=== PATIENT | female | born 1965 | race Caucasian/White ===

== ENCOUNTER → 2023-07-05 08:33 | Outpatient (REF) | payer BC, SELFPAY | LOC: WDC 08:33 | PROVIDERS: ATTENDING PHYSICIAN Obstetrics & Gynecology Gynecology; FAMILY PHYSICIAN Family Medicine | DX: Z12.31 Encounter for screening mammogram for malignant neoplasm of breast (principal) | CPT/HCPCS: 77063; 77067 ==

== ENCOUNTER → 2023-07-30 07:25 | Outpatient (REF) | payer BC, SELFPAY ==
[2023-07-30 09:24] LABS: Glycohemoglobin (HgbA1c) 5.6 % (4.0-5.6)
[2023-07-30 10:30] LABS: ALT (SGPT) 19 U/L (0-35); AST (SGOT) 30 U/L (14-36); Albumin 4.9 g/dl (3.5-5.0); Alkaline Phosphatase 78 U/L (38-126); Blood Urea Nitrogen 18 mg/dl (7-17); Calcium 10.4 mg/dl (8.4-10.2); Carbon Dioxide 24 mmol/L (22-30); Chloride 105 mmol/L (98-107); Glucose 94 mg/dl (70-99); HDL Cholesterol 74 mg/dl; Potassium 4.1 mmol/L (3.5-5.1); Sodium 139 mmol/L (135-145); Total Bilirubin 0.8 mg/dl (0.2-1.3); Triglyceride 116 mg/dl (10-149); Very Low Density Lipoprotein 23 mg/dl (0-30); eGFR > 60.00
[2023-07-30 10:34] LABS: TSH 1.43 uIU/ml (0.47-4.68)
[2023-07-30 10:50] LABS: LDL Cholesterol, Calculated 169 mg/dl; Total Cholesterol 266 mg/dl (50-199)
== END ==
LOC: REG 07:25
PROVIDERS: ATTENDING PHYSICIAN Family Medicine
DX: E78.00 Pure hypercholesterolemia, unspecified (principal); R73.01 Impaired fasting glucose; Z00.00 Encounter for general adult medical examination without abnormal findings
CPT/HCPCS: 36415; 80053; 80061; 83036; 84443

== ENCOUNTER → 2023-09-10 08:36 | Outpatient (REF) | payer BC, SELFPAY ==
[2023-09-10 08:58] LABS: % Basophils 0.3 % (0-2); % Eosinophils 1.4 % (0-6); % Immature Granulocytes 0.1 % (0-0.5); % Monocytes 6.9 % (1.7-9.3); % Neutrophils 65.3 % (42.2-75.2); Absolute Eosinophils 0.1 10^3/uL (0-0.7); Absolute Lymphocytes 1.9 10^3/uL (1.2-3.4); Absolute Monocytes 0.5 10^3/uL (0.1-0.6); Absolute Neutrophils 4.7 10^3/uL (1.4-6.5); Hematocrit 40.8 % (37.0-47.0); Hemoglobin 13.4 g/dL (12.0-16.0); Mean Corp Hgb Conc. 32.8 g/dL (33.0-37.0); Mean Corpuscular Hgb 29.1 pg (27.0-31.0); Mean Corpuscular Volume 88.7 fL (81.0-99.0); Mean Platelet Volume 9.6 fL (7.4-10.4); Platelet Count 186 10^3/uL (130-400); White Blood Cell Count 7.1 10^3/uL (4.8-10.8)
[2023-09-10 10:27] LABS: LDH 190 U/L (120-246)
[2023-09-10 23:33] LABS: IgG 1244 mg/dl (700-1600)
--- NOTE | 2023-09-11 10:00 | SURV.PHONR ---
Survivorship Phone Log
- Communication
Date Spoke With Comments
09/10/2023 patient Patient seen in [facility] today for labs. Seen with outpatient infusion nurse Janna Goins. Patient reports irritation with scar that developed over Mediport site after removal in March. We discussed laser treatment could be helpful
for this through rehab. Patient was motivated to try this. I advised the patient I would send a prescription to rehab which I did and gave her than phone number to schedule.
We also discussed survivorship and I encouraged her to make an appointment. Over the phone we did discuss that she is interested in increasing exercise. We talked about taking daily walks, considering light weights, yoga, and even meditation. I
encouraged her to do these with her for both physical activity increase as well as emotional health. We also discussed resources available including [facility] . Contact information was provided for this. I also mailed out our
resource list to the patient. She was provided my contact information and advised to call for any additional questions or concerns. Overall she is under a lot of stress right now with her being treated at [facility] for leukemia. She will call
to make an appointment either by phone or in person to discuss survivorship further. She thanked me for my time and for the call and will call back as needed. A total of 35 minutes was spent on the phone and direct conversation with the patient.
== END ==
LOC: OIDL 08:36
PROVIDERS: ATTENDING PHYSICIAN Internal Medicine Hematology & Oncology; FAMILY PHYSICIAN Family Medicine
DX: C83.73 Burkitt lymphoma, intra-abdominal lymph nodes (principal); T82.868A Thrombosis due to vascular prosthetic devices, implants and grafts, initial encounter; Y83.1 Surgical operation with implant of artificial internal device as the cause of abnormal reaction of the patient, or of later complication, without mention of misadventure at the time of the procedure
CPT/HCPCS: 36415; 82784; 83615; 85025

== ENCOUNTER → 2023-10-02 18:34 | Outpatient (REF) | payer BC, SELFPAY ==
[2023-10-02 19:28] LABS: Urine Albumin Negative (Neg - Trace); Urine Bilirubin Negative (Negative); Urine Character Clear (Clear); Urine Color Yellow; Urine Glucose Negative (Negative); Urine Ketone Negative (Negative); Urine Leukocyte Negative (Negative); Urine Nitrite Negative (Negative); Urine Occult Blood Negative (Negative); Urine Specific Gravity 1.015 (<1.030); Urine Urobilinogen Negative (Neg - 1+); Urine pH 6.5 (5.0-9.0)
== END ==
LOC: CPAP 18:34
PROVIDERS: ATTENDING PHYSICIAN Nurse Practitioner Adult Health
DX: R10.2 Pelvic and perineal pain (principal); N76.0 Acute vaginitis
CPT/HCPCS: 81003; 87086; 87102

== ENCOUNTER 2023-10-06 07:55 | Outpatient (RCR) | payer BC, SELFPAY | END 2023-10-06 23:59 | disposition home or self-care (01) | LOC: RPT 07:55 | PROVIDERS: ATTENDING PHYSICIAN Internal Medicine Hematology & Oncology; FAMILY PHYSICIAN Family Medicine | DX: C83.33 Diffuse large B-cell lymphoma, intra-abdominal lymph nodes (principal) | CPT/HCPCS: 97110; 97140; 97161; 97535 ==

== ENCOUNTER 2023-10-13 11:15 | Emergency (ER) | payer BC, SELFPAY ==
[2023-10-13 11:25] VITALS: BP 156/93
--- NOTE | 2023-10-13 11:53 | ED.GENMED ---
History of Present Illness
General
Chief Complaint: Musculo-Skeletal Complaint
Source: patient
Time Seen by Provider: 10/13/23 11:33
History of Present Illness
History of Present Illness:
57-year-old female with past medical history lymphoma (currently in remission x 3 years), GERD, anemia presenting emergency department for evaluation of lower back/pelvic pain that has been ongoing for about 2 to 3 weeks after an accidental fall
when she got her foot caught in between 2 rocks and turned trying to get her foot out but caused her to fall onto her left side. Patient states initially after the fall she did not feel too bad but went to the chiropractor and since that time has
had worsening lower back/pelvic pain. Patient notes pain worse when sitting. She also notes some mild paresthesia into the buttock area/back of her thighs.
Past History
Past History
ED Past Medical History: Cancer, GERD and Hypercholesterolemia
ED Past Surgical History: Gynecological
Social History
Tobacco: Non-smoker
Alcohol: Occasional
Drug: None
Personal:
Living: with family
Employment: Employed
Family History
Family History: Other (Colon cancer)
Review of Systems
Review of Systems
All Other Systems: ROS reviewed and negative except as documented in HPI and ROS
Phy Exam
Physical Exam
Physical Exam:
GENERAL: Alert , in no apparent distress
EYE: conjunctiva clear
NECK: Supple, no significant adenopathy.
ENT: o/p clr, mmm.
CARDIAC: Regular rate and rhythm
LUNGS: Clear breath sounds bilaterally, no acute respiratory distress, no wheezes/rales/rhonchi
Back: Tenderness along the sacrum extending laterally into the left buttock
NEUROLOGICAL: Alert and oriented
SKIN: Warm and dry, skin intact.
MUSCULOSKELETAL: well perfused.
PSYCH: Normal and appropriate interaction.
Scores
Heart Failure Risk
Heart Failure Risk Score: Not Applicable
Heart Score for Chest Pain Patients
STEMI patient?: Not applicable
Withdrawal Assessment of Alcohol
Withdrawal Assessment Completed?: Not applicable
Course
Orders/Labs/Results
Orders:
Orders
10/13/23 11:47
CT Pelvis W/o Iv Contrast Urgent
Comment:
Reason For Exam: fall, pain, paresthesia
Vital Signs
Initial and Last Documented VS:
Initial Vital Signs
Temp Pulse Resp BP Pulse Ox
98.2 F 79 18 156/93 97
10/13/23 11:25 10/13/23 11:25 10/13/23 11:25 10/13/23 11:25 10/13/23 11:25
Last Documented Vital Signs
Temp Pulse Resp BP Pulse Ox
98.2 F 79 18 156/93 97
10/13/23 11:25 10/13/23 11:25 10/13/23 11:25 10/13/23 11:25 10/13/23 11:25
MDM/Problems Addressed
Differential Diagnosis Includes:
pelvic contusion, sacral fx, coccyx fracture, pelvic fx, lumbar sprain
MDM/Problems Addressed:
57-year-old female presenting emergency department for worsening lower back pain following a fall a couple of weeks ago. Has been attempting ice, NSAIDs and sitting on pillows but this is not given her any relief. Discussed risk versus benefit of
CT and x-ray. Patient prefers CT at this time. Declines any medication for pain.
*Radiology
Radiology exam reviewed: radiology read reviewed
*Pulse Oximetry
Patient hypoxic: no
*Critical Care Note
Total Time (30-74mins, 75-104mins- exclusive of procedures): Not Applicable
Patient Management
Escalation/DeEscalation of care consider admission/obs:
Patient CT scan without evidence for acute fracture. Hernia known and patient has surgery scheduled for this coming November. Stable for d/c home and outpatient follow up with PCP
ED Attending Note
-
Portions of this chart may have been created with voice recognition software.� Occasional wrong word or��sound alike� substitutions may have occurred due to the inherent limitations of voice recognition software.
Discharge Plan
Departure
Patient Disposition: Home (Routine Discharge)
Date of Disposition: 10/13/23
Time of Disposition: 14:03
Patient with high blood pressure during this ER visit?: Yes
Discharge Problem:
Contusion of sacral region
Instructions: Contusion (DC)
Prescriptions:
No Action
omeprazole 20 MG capsule,delayed release(DR/EC)
20 mg PO DAILY
sertraline 50 MG tablet
100 mg PO DAILY
multivitamin with folic acid [Tab-A-Kizzy] 1 TABLET tablet
1 tab PO DAILY
Referrals:
Loni Navarro MD [Family Provider] -
Interventions
Interventions:
*Risk Screen - Suicide Last Done: 10/13/23 11:25
*General Assessment Last Done: 10/13/23 11:25
*Neglect/Abuse Screening Last Done: 10/13/23 11:25
*ED COVID-19 Vaccine History Last Done: 10/13/23 11:25
*Nursing Disposition Last Done: 10/13/23 14:15
ED-Musculoskeletal Assessment Last Done: 10/13/23 11:58
Discharge Date and Time
Discharge Date/Time: 10/13/23 14:16
Print Language: POLISH
== END 2023-10-13 14:16 | disposition home or self-care (01) ==
LOC: EMR 11:15
PROVIDERS: EMERGENCY PHYSICIAN Emergency Medicine; FAMILY PHYSICIAN Family Medicine
DX: S30.0XXA Contusion of lower back and pelvis, initial encounter (principal); W19.XXXA Unspecified fall, initial encounter; K21.9 Gastro-esophageal reflux disease without esophagitis; E78.00 Pure hypercholesterolemia, unspecified; D64.9 Anemia, unspecified; Z80.0 Family history of malignant neoplasm of digestive organs; Z85.72 Personal history of non-Hodgkin lymphomas
CPT/HCPCS: 99284; 72192

== ENCOUNTER 2023-11-19 06:13 | Outpatient (RCR) | payer BC, SELFPAY | END 2023-11-19 23:59 | disposition home or self-care (01) | LOC: RPT 06:13 | PROVIDERS: ATTENDING PHYSICIAN Nurse Practitioner Adult Health; FAMILY PHYSICIAN Family Medicine | DX: R10.2 Pelvic and perineal pain (principal); M62.81 Muscle weakness (generalized); Z73.6 Limitation of activities due to disability; Z98.890 Other specified postprocedural states | CPT/HCPCS: 97110; 97163; 97530 ==

== ENCOUNTER 2023-11-28 11:56 | Outpatient (RCR) | payer BC, SELFPAY | END 2023-11-28 23:59 | disposition home or self-care (01) | LOC: RPT 11:56 | PROVIDERS: ATTENDING PHYSICIAN Nurse Practitioner Adult Health; FAMILY PHYSICIAN Family Medicine | DX: R10.2 Pelvic and perineal pain (principal); N94.818 Other vulvodynia; M62.81 Muscle weakness (generalized) | CPT/HCPCS: 97110; 97530 ==

== ENCOUNTER 2023-12-01 06:26 | Day surgery (SDC) | payer BC, SELFPAY ==
[2023-11-25 09:24] LABS: Hematocrit 36.9 % (37.0-47.0); Hemoglobin 12.5 g/dL (12.0-16.0); Mean Corp Hgb Conc. 33.9 g/dL (33.0-37.0); Mean Corpuscular Hgb 29.4 pg (27.0-31.0); Mean Corpuscular Volume 86.8 fL (81.0-99.0); Mean Platelet Volume 10.7 fL (7.4-10.4); Platelet Count 188 10^3/uL (130-400); Red Blood Cell Count 4.25 10^6/uL (4.20-5.40); Red Cell Dist. Width 13.1 % (11.5-14.5); White Blood Cell Count 7.1 10^3/uL (4.8-10.8)
[2023-11-25 09:47] VITALS: BMI 32.0
[2023-11-25 10:00] LABS: Blood Urea Nitrogen 18 mg/dl (7-17); Calcium 9.7 mg/dl (8.4-10.2); Carbon Dioxide 28 mmol/L (22-30); Chloride 104 mmol/L (98-107); Estimated Creatinine Clearance 78 ml/min; Glucose 88 mg/dl (70-99); Potassium 4.7 mmol/L (3.5-5.1); Sodium 143 mmol/L (135-145); eGFR > 60.00
[2023-12-01] VITALS (12 sets, daily range): BP systolic 127–163; BP diastolic 79–97; BMI 32.0
--- NOTE | 2023-12-01 07:15 | HP.FOC2 ---
Focused History & Physical
Chief Complaint
HPI:
Chief Complaint: Incisional hernia
HPI / Indication for Planned Procedure: Patient is a 57-year-old female who underwent JASMYNE/BSO for removal of pelvic mass via lower midline laparotomy incision and 2020 and previous history of Pfannenstiel surgical incision for right oophorectomy in
the more distant past.
She has taken note of periumbilical swelling to the left side present upon standing, slowly enlarging in size over the years. Uncomfortable and at times painful particularly at the end of the day or after prolonged standing/exercise. No nausea no
vomiting. No symptoms suggestive of incarceration with obstruction or strangulation.
Recent CT imaging identifying a left periumbilical incisional hernia fat-containing measuring approximately 2 cm in diameter and a small adjacent fat-containing umbilical hernia.
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
Relevant Social History: Negative
Relevant Family History: Negative
Relevant Past Surgical History: Positive for (Right oophorectomy, benign breast biopsy, mandibular advancement surgery, ex lap JASMYNE/BSO for B-cell lymphoma mass, port placement)
Review of Systems
Review of Pertinent Systems: All Systems Negative
Medication
See Medication form for detailed medications: Yes
Medication List (including Herbals & OTC):
omeprazole 20 mg capsule,delayed release 20 mg PO DAILY Gastrointestinal issue 10/11/20
multivitamin 1 tab PO DAILY 11/20/23
sertraline 50 mg tablet 50 mg PO DAILY 11/20/23
Medications Reviewed: Yes
Allergies and Reactions
Patient has Allergies: No
Noted Allergies and Reactions:
Allergy/AdvReac Type Severity Reaction Status Date / Time
No Known Allergies Allergy Verified 11/20/23 08:44
Pertinent Physical Exam
All Other Systems: Negative
Head/Neck: Normal
Lungs: Normal
Heart: Normal
Abdomen: Other (Soft, reducible, slightly tender incisional hernia just to the left of the umbilical stalk. Fascial defect approximately 2 cm.)
Extremities: Normal
Neurological: Normal
Diagnosis / Assessment
57-year-old female presenting for scheduled operative correction periumbilical incisional hernia, 2 cm
Plan / Procedure
Robotic assisted laparoscopic repair incisional hernia with mesh
Anesthesia/Sedation to be done by Anesthesia Provider: Yes
[2023-12-01] MEDS: TYLENOL 1000 MG PO (08:49)
[2023-12-01] MEDS: NORMOSOL-R/PLASMALYTE-A 1000 IV (08:50)
--- NOTE | 2023-12-01 09:02 | W.SUR.PREOP ---
Pre-Operative Surgical Note
-
I have examined this patient prior to the performance of the scheduled procedure.
The patient's condition is unchanged from the time of the current History and
Physical and the patient is able to undergo the scheduled procedure.
--- NOTE | 2023-12-01 12:06 | W.IMMPOSTOP ---
Addendum entered and electronically signed by Chi Moses MD 12/01/23 16:27:
[id number]
Original Note:
Surgical Immed Post Op Note
-
Primary Surgeon: Josué
Assisting Surgeon: Ana Chun PA-c
Pre-op Diagnosis: Incisional hernia/UH
Post-op Diagnosis: Incisional hernia/UH (3cm total length); SB adhesions
Procedure Performed: RAL IPUM (+) repair incisional and umbilical hernias with mesh (11cm round Ventralight ST)
RAL ANNA MARIE
Anesthesia Type: GETA + 0.25% Marcaine
Specimen / Cultures: none
Estimated Blood Loss: 8mL
Complications: none immediate
Operative Findings: numerous SB adhesions to midline laparotomy incision and LLQ adding 45min to typical operative time. incisional hernia to left of midline at umbilicus ~2cm defect with <1cm immediately adjacent UH; total length 3cm. closure of
fascial defects with 0 PDS Strattafix. VentralightST 11cm round IPUM repair secured with 2-0 PDS Strattafix.
The assistance of Ana Chun PA-C was required due to the complexity of the procedure. During the procedure Ana Chun PA-C assisted with port placement, robotic instrumentation and suture material exchanges, and closure of the surgical incision
sites. I was present for the entirety of the operative procedure.
[2023-12-01] MEDS: TYLENOL 650 MG PO (14:48)
== END 2023-12-01 15:10 | disposition home or self-care (01) ==
LOC: SDS 06:26
PROVIDERS: ATTENDING PHYSICIAN Surgery; FAMILY PHYSICIAN Family Medicine; OTHER PHYSICIAN Internal Medicine; OTHER PHYSICIAN Internal Medicine Hematology & Oncology
DX: K42.9 Umbilical hernia without obstruction or gangrene (principal); K43.0 Incisional hernia with obstruction, without gangrene; K66.0 Peritoneal adhesions (postprocedural) (postinfection)
CPT/HCPCS: 49593; 36415; 80048; 85027; 93005; C1781

== ENCOUNTER → 2024-03-10 08:43 | Outpatient (REF) | payer BC, SELFPAY | LOC: RAD 08:43 | PROVIDERS: ATTENDING PHYSICIAN Internal Medicine Hematology & Oncology; FAMILY PHYSICIAN Family Medicine | DX: C83.33 Diffuse large B-cell lymphoma, intra-abdominal lymph nodes (principal); D64.81 Anemia due to antineoplastic chemotherapy; D50.9 Iron deficiency anemia, unspecified | CPT/HCPCS: 36415; 71260; 74177; 80048; 83615; 85025; Q9967 ==

== ENCOUNTER 2024-05-17 09:54 | Outpatient (RCR) | payer BC, SELFPAY | END 2024-05-17 23:59 | disposition home or self-care (01) | LOC: RPT 09:54 | PROVIDERS: ATTENDING PHYSICIAN Internal Medicine Hematology & Oncology; FAMILY PHYSICIAN Family Medicine | DX: R35.0 Frequency of micturition (principal); M54.50 Low back pain, unspecified; R53.0 Neoplastic (malignant) related fatigue; Z73.6 Limitation of activities due to disability; M62.81 Muscle weakness (generalized); M25.552 Pain in left hip; M25.551 Pain in right hip | CPT/HCPCS: 97110; 97112; 97140; 97163; 97530 ==

== ENCOUNTER 2024-06-16 08:44 | Outpatient (RCR) | payer BC, SELFPAY | END 2024-06-16 23:59 | disposition home or self-care (01) | LOC: RPT 08:44 | PROVIDERS: ATTENDING PHYSICIAN Internal Medicine Hematology & Oncology; FAMILY PHYSICIAN Family Medicine | DX: R35.0 Frequency of micturition (principal); M54.50 Low back pain, unspecified; R53.0 Neoplastic (malignant) related fatigue; Z73.6 Limitation of activities due to disability; M62.81 Muscle weakness (generalized); M25.552 Pain in left hip; M25.551 Pain in right hip; Z85.72 Personal history of non-Hodgkin lymphomas | CPT/HCPCS: 97110; 97112; 97140; 97530 ==

== ENCOUNTER 2024-06-30 10:57 | Outpatient (RCR) | payer BC, SELFPAY | END 2024-06-30 12:48 | disposition home or self-care (01) | LOC: RPT 10:57 | PROVIDERS: ATTENDING PHYSICIAN Internal Medicine Hematology & Oncology; FAMILY PHYSICIAN Family Medicine | DX: R35.0 Frequency of micturition (principal); M54.50 Low back pain, unspecified; R53.0 Neoplastic (malignant) related fatigue; Z73.6 Limitation of activities due to disability; M62.81 Muscle weakness (generalized); M25.552 Pain in left hip; M25.551 Pain in right hip; Z85.72 Personal history of non-Hodgkin lymphomas | CPT/HCPCS: 97110; 97112; 97530 ==

== ENCOUNTER → 2024-07-05 18:35 | Outpatient (REF) | payer BC, SELFPAY | LOC: WDC 18:35 | PROVIDERS: ATTENDING PHYSICIAN Obstetrics & Gynecology Gynecology; FAMILY PHYSICIAN Family Medicine | DX: Z12.31 Encounter for screening mammogram for malignant neoplasm of breast (principal) | CPT/HCPCS: 77063; 77067 ==

== ENCOUNTER → 2024-07-30 07:10 | Outpatient (REF) | payer BC, SELFPAY ==
[2024-07-30 08:35] LABS: ALT (SGPT) 20 U/L (0-35); AST (SGOT) 25 U/L (14-36); Albumin 4.3 g/dl (3.5-5.0); Alkaline Phosphatase 68 U/L (38-126); Blood Urea Nitrogen 13 mg/dl (7-17); Carbon Dioxide 29 mmol/L (22-30); Chloride 106 mmol/L (98-107); Glucose 100 mg/dl (70-99); HDL Cholesterol 60 mg/dl; LDL Cholesterol, Calculated 146 mg/dl; Potassium 4.9 mmol/L (3.5-5.1); Sodium 142 mmol/L (135-145); Total Bilirubin 0.7 mg/dl (0.2-1.3); Total Cholesterol 250 mg/dl (50-199); Total Protein 7.3 g/dl (6.3-8.2); Triglyceride 223 mg/dl (10-149); Very Low Density Lipoprotein 44 mg/dl (0-30); eGFR > 60.00
[2024-07-30 08:56] LABS: TSH 2.34 uIU/ml (0.47-4.68)
[2024-07-30 12:59] LABS: Glycohemoglobin (HgbA1c) 5.3 % (4.0-5.6)
== END ==
LOC: REG 07:10
PROVIDERS: ATTENDING PHYSICIAN Family Medicine
DX: E78.00 Pure hypercholesterolemia, unspecified (principal); Z00.00 Encounter for general adult medical examination without abnormal findings; R73.01 Impaired fasting glucose
CPT/HCPCS: 36415; 80053; 80061; 83036; 84443

== ENCOUNTER 2024-09-15 06:24 | Day surgery (SDC) | payer BC, SELFPAY | END 2024-09-15 08:32 | disposition home or self-care (01) | LOC: GI 06:24 | PROVIDERS: ATTENDING PHYSICIAN Internal Medicine | DX: Z12.11 Encounter for screening for malignant neoplasm of colon (principal); D12.0 Benign neoplasm of cecum; D12.2 Benign neoplasm of ascending colon; D12.3 Benign neoplasm of transverse colon; D12.4 Benign neoplasm of descending colon; K64.9 Unspecified hemorrhoids; Z86.0101 Personal history of adenomatous and serrated colon polyps; Z80.0 Family history of malignant neoplasm of digestive organs | CPT/HCPCS: 45385; 88305 ==

== ENCOUNTER → 2024-09-28 09:17 | Outpatient (REF) | payer BC, SELFPAY ==
[2024-09-28 09:54] LABS: Hematocrit 39.2 % (37.0-47.0); Hemoglobin 12.9 g/dL (12.0-16.0); Mean Corp Hgb Conc. 32.9 g/dL (33.0-37.0); Mean Corpuscular Volume 87.1 fL (81.0-99.0); Platelet Count 164 10^3/uL (130-400); Red Cell Dist. Width 13.0 % (11.5-14.5)
[2024-09-28 10:33] LABS: ALT (SGPT) 22 U/L (0-35); AST (SGOT) 32 U/L (14-36); Albumin 4.6 g/dl (3.5-5.0); Alkaline Phosphatase 69 U/L (38-126); Blood Urea Nitrogen 14 mg/dl (7-17); Calcium 9.9 mg/dl (8.4-10.2); Carbon Dioxide 24 mmol/L (22-30); Chloride 109 mmol/L (98-107); Glucose 99 mg/dl (70-99); LDH 264 U/L (120-246); Potassium 4.7 mmol/L (3.5-5.1); Sodium 140 mmol/L (135-145); Total Protein 7.4 g/dl (6.3-8.2); eGFR > 60.00
== END ==
LOC: OIDL 09:17
PROVIDERS: ATTENDING PHYSICIAN Internal Medicine Hematology & Oncology; FAMILY PHYSICIAN Family Medicine
DX: C83.33 Diffuse large B-cell lymphoma, intra-abdominal lymph nodes (principal); D64.81 Anemia due to antineoplastic chemotherapy; D50.9 Iron deficiency anemia, unspecified
CPT/HCPCS: 36415; 80053; 83615; 85025

== ENCOUNTER → 2024-11-17 07:11 | Outpatient (REF) | payer BC, SELFPAY ==
[2024-11-17 10:56] LABS: LDH 187 U/L (120-246)
== END ==
LOC: REG 07:11
PROVIDERS: ATTENDING PHYSICIAN Internal Medicine Hematology & Oncology; FAMILY PHYSICIAN Family Medicine
DX: C83.33 Diffuse large B-cell lymphoma, intra-abdominal lymph nodes (principal); D64.81 Anemia due to antineoplastic chemotherapy; D50.9 Iron deficiency anemia, unspecified
CPT/HCPCS: 36415; 83615

== ENCOUNTER → 2025-01-13 16:38 | Outpatient (REF) | payer BC, SELFPAY | LOC: CLAB 16:38 | PROVIDERS: ATTENDING PHYSICIAN Obstetrics & Gynecology | DX: N76.0 Acute vaginitis (principal) | CPT/HCPCS: 87102 ==